=== PATIENT | male | born 1940 | race Caucasian/White ===

== ENCOUNTER 2024-07-15 06:37 | Emergency (ER) | payer MEDICARE, OTHER ==
--- NOTE | 2024-07-15 07:36 | ED Physician Documentation ---
PD HPI SYNCOPE - Stated complaint Stated Complaint: FALL - Chief complaint Chief Complaint: Neuro - History obtained from History obtained from: Patient, EMS (they noted his BP low on their arrival 85 systolic, which improved with IV fluids enroute. H normal and prehospital ECG normal.) - History of Present Illness Witnessed: Witnessed (by spouse) Timing - onset: Today (lightheaded and slumped to floor heading into bathroom after getting up this morning. Was weak the past 2 days with diarrhea. No fevers. Nausea ut no vomiting, though still singicant less PO intake. Still t aking usual meds.) Duration: Seconds Preceding symptoms: Headache, Nausea / vomiting, Light headed, Generalized weakness. No: Chest pain, Abdominal pain Contributing factors: Decreased PO intake, Just stood up. 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 denies: Vomiting, Constipation, Bloody / black stool Neurologic: reports: Generalized weakness, Near syncope. denies: Focal weakness, Syncope PD PAST MEDICAL HISTORY - Past Medical History Cardiovascular: Hypertension Respiratory: None Neuro: None Endocrine/Autoimmune: None - Present Medications Home Medications: Ambulatory Orders Medication Instructions Recorded Confirmed Atorvastatin Calcium [Lipitor] 20 mg PO DAILY 08/11/14 03/08/24 Amiodarone [Pacerone] 100 mg PO DAILY 12/16/20 03/08/24 FLUoxetine [PROzac] 10 mg PO DAILY 12/16/20 03/15/24 Cholecalciferol [Vitamin D3] 1 cap PO QPM 01/24/21 03/08/24 Glucosamine Sulfate 1 cap PO QPM 01/24/21 03/08/24 [place]-3S/Dha/Epa/Fish Oil [Fish 1 cap PO QPM 01/24/21 03/08/24 Oil 1,200 mg Softgel] Alpha Lipoic Acid 600 mg PO DAILY 04/21/23 03/08/24 Multivit-Min/Ferrous Sulfate [One 1 each PO DAILY 04/21/23 03/08/24 Daily Multivit-Mineral Tab] Famotidine [Pepcid] 20 mg PO DAILY PRN 03/08/24 03/08/24 amLODIPine [Norvasc] 5 mg PO DAILY #30 tablet 07/10/24 Diphenoxylate/Atropine [Lomotil] 1 each PO QID PRN #12 tablet 07/15/24 Ondansetron Odt [Zofran] 4 mg TL Q6H PRN #10 tablet 07/15/24 - Allergies Allergies/Adverse Reactions: Allergies Allergy/AdvReac Type Severity Reaction Status Date / Time Sulfa (Sulfonamide Allergy Unknown Verified 07/15/24 06:39 Antibiotics) - Social History Does the pt smoke?: No Smoking Status: Former smoker PD ED PE NORMAL - Vitals Vital signs reviewed: Yes - General General: Alert and oriented X 3, No acute distress, Well developed/nourished - HEENT HEENT: Atraumatic, Pharynx benign - Neck Neck: Supple, no meningeal sign, No adenopathy - Cardiac Cardiac: RRR, No murmur - Respiratory Respiratory: No respiratory distress, Clear bilaterally - Abdomen Abdomen: Soft, Non tender - Derm Derm: Warm and dry. No: Normal color (somewhat pale on arrival) - Extremities Extremities: No edema, No calf tenderness / cord - Neuro Neuro: Alert and oriented X 3, No motor deficit, No sensory deficit, Normal speech Results - Vitals Vitals: Oxygen O2 Source Room air - EKG (time done) 06:51 EKG releavant findings:: EKG personally interpreted by author of this note. Relevant findings are: Rate: Rate (enter#) (59) Rhythm: NSR [place]: Normal Intervals: Normal [place] QRS: Normal Ischemia: Normal ST segments. No: ST elevation c/w ischemia, ST depression - Labs Labs: Laboratory Tests 07/15/24 07/15/24 07/15/24 08:19 08:19 08:19 WBC 8.0 RBC 4.00 L Hgb 11.2 L Hct 34.9 L MCV 87.3 MCH 28.0 MCHC 32.1 RDW 15.9 H Plt Count 183 MPV 9.4 Neut # (Auto) 7.2 H Lymph # (Auto) 0.3 L [place] # (Auto) 0.5 Eos # (Auto) 0.0 Baso # (Auto) 0.0 Absolute Nucleated RBC 0.00 Nucleated RBC % 0.0 Sodium 134 L Potassium 3.5 Chloride 104 Carbon Dioxide 24 Anion Gap 6.0 BUN 23 H Creatinine 0.9 Estimated GFR (MDRD) 80 L Glucose 101 Lactic Acid 0.7 Calcium 8.4 L Magnesium 1.9 Total Bilirubin 0.6 AST 18 ALT 13 Alkaline Phosphatase 149 H Total Protein 6.1 L Albumin 3.6 Globulin 2.5 Albumin/Globulin Ratio 1.4 Lipase < 10 L Nasal Adenovirus (PCR) Nasal B. parapertussis DNA (PCR) Nasal Coronavir 229E PCR Nasal Coronavir HKU1 PCR Nasal Coronavir NL63 PCR Nasal Coronavir OC43 PCR Nasal Enterovir/Rhinovir PCR Nasal Influenza B PCR Nasal Influenza A PCR Nasal Parainfluen 1 PCR Nasal Parainfluen 2 PCR Nasal Parainfluen 3 PCR Nasal Parainfluen 4 PCR Nasal RSV (PCR) Nasal B.pertussis DNA PCR Nasal C.pneumoniae (PCR) Sunny Human Metapneumo PCR Nasal M.pneumoniae (PCR) Nasal SARS-CoV-2 (PCR) Blood Type Blood Type Recheck Antibody Screen 07/15/24 07/15/24 07/15/24 08:19 09:05 09:21 WBC RBC Hgb Hct MCV MCH MCHC RDW Plt Count MPV Neut # (Auto) Lymph # (Auto) [place] # (Auto) Eos # (Auto) Baso # (Auto) Absolute Nucleated RBC Nucleated RBC % Sodium Potassium Chloride Carbon Dioxide Anion Gap BUN Creatinine Estimated GFR (MDRD) Glucose Lactic Acid Calcium Magnesium Total Bilirubin AST ALT Alkaline Phosphatase Total Protein Albumin Globulin Albumin/Globulin Ratio Lipase Nasal Adenovirus (PCR) NOT DETECTED Nasal B. parapertussis DNA (PCR) NOT DETECTED Nasal Coronavir 229E PCR NOT DETECTED Nasal Coronavir HKU1 PCR NOT DETECTED Nasal Coronavir NL63 PCR NOT DETECTED Nasal Coronavir OC43 PCR NOT DETECTED Nasal Enterovir/Rhinovir PCR NOT DETECTED Nasal Influenza B PCR NOT DETECTED Nasal Influenza A PCR NOT DETECTED Nasal Parainfluen 1 PCR NOT DETECTED Nasal Parainfluen 2 PCR NOT DETECTED Nasal Parainfluen 3 PCR NOT DETECTED Nasal Parainfluen 4 PCR NOT DETECTED Nasal RSV (PCR) NOT DETECTED Nasal B.pertussis DNA PCR NOT DETECTED Nasal C.pneumoniae (PCR) NOT DETECTED Sunny Human Metapneumo PCR NOT DETECTED Nasal M.pneumoniae (PCR) NOT DETECTED Nasal SARS-CoV-2 (PCR) NOT DETECTED Blood Type O POSITIVE Blood Type Recheck O POSITIVE Antibody Screen NEGATIVE - Rads (name of study) chst xray Relevant Findings:: Prelim report reviewed, EMP independent interpretation of test (no infiltrates nor effusion. Some cardiomegaly.) head CT Relevant Findings:: Prelim report reviewed, EMP independent interpretation of test (no ICH nor acute injury noted. ) PD Medical Decision Making - ED course Complexity details: reviewed results (anemic but at chronic baseline Hgb level. No drop from usual. He did not have stool here, of course, so did not do guaic.), re-evaluated patient (feeling well. not lightheaded with standing. Drinking juice. ), considered differential (hs andersen diarrhea for couple days and felt weak, near syncope when got up this morning. says he was lethargic/sleepy and confused just prior to the near-fainting. ), d/w patient ED course: the lightheaded and weak seems reasonable in lieu of 2 days of diarrhea and less PO intkae. Given IV fluids here, antinauseants and was able to drink some department juice. Orthostatics were good and not lightheaded with standing now. Departure - Departure Disposition: 01 Home, Self Care Clinical Impression: Acute diarrhea, Volume depletion, gastrointestinal loss, Near syncope, G eneralized weakness Condition: Stable Record reviewed to determine appropriate education?: Yes Instructions: ED Diet Vomiting Diarrhea Follow-Up: Jody Warren MD [Primary Care Provider] - Prescriptions: Diphenoxylate/Atropine [Lomotil] 1 each PO QID PRN #12 tablet PRN Reason: Diarrhea Ondansetron Odt [Zofran] 4 mg TL Q6H PRN #10 tablet PRN Reason: Nausea / Vomiting Comments: I presume this may be a mild viral enteritis ("stomach flu"). I presume your gut under hydrated and had the near fainting/fainting from a brief drop in blood pressure. We have given you extra fluid here. Your basic blood count is doing okay and your vital signs are good here. I presume this will improve in the next day or 2. You can use ondansetron if needed for nausea and Lomotil if needed for diarrhea. Otherwise continue usual medicines except for holding the recent blood pressure medicine for the next week at least. Recheck if not improved well over the next few days. Forms: PCP List Discharge Date/Time: 07/15/24 13:00
[2024-07-15 08:29] LABS: BASOPHILS % (AUTO) 0.1 %; EOSINOPHILS % (AUTO) 0.5 %; HCT - HEMATOCRIT 34.9 % (42.0-52.0); HGB - HEMOGLOBIN 11.2 g/dL (14.0-18.0); LYMPHOCYTES # (AUTO) 0.3 10^3/uL (1.5-3.5); LYMPHOCYTES % (AUTO) 3.4 %; MEAN CORPUSCULAR HGB CONC 32.1 g/dL (32.0-36.0); MEAN CORPUSCULAR VOLUME 87.3 fL (80.0-94.0); MEAN PLATELET VOLUME 9.4 fL (7.4-11.4); MONOCYTES # (AUTO) 0.5 10^3/uL (0.0-1.0); MONOCYTES % (AUTO) 6.4 %; NEUTROPHILS # (AUTO) 7.2 10^3/uL (1.5-6.6); NEUTROPHILS % (AUTO) 89.2 %; PLT - PLATELET COUNT 183 10^3/uL (130-450); RED CELL DISTRIBUTION WIDTH 15.9 % (12.0-15.0)
--- NOTE | 2024-07-15 08:37 | XRAY Report ---
PROCEDURE: Chest 1V INDICATIONS: cough, weakness TECHNIQUE: One view of the chest was acquired. COMPARISON: None. FINDINGS: Surgical changes and devices: Percutaneous aortic valve, leadless pacemaker. Lungs and pleura: No pleural effusions or pneumothorax. Mild left basilar atelectasis. Mediastinum: Mediastinal contours appear normal. Mild cardiomegaly. Bones and chest wall: No suspicious bony lesions. Overlying soft tissues appear unremarkable. IMPRESSION: Mild cardiomegaly, mild left basilar atelectasis. Reviewed by: Juan J Millard MD on 07/15/2024 8:35 AM PDT Approved by: Juan J Millard MD on 07/15/2024 8:35 AM PDT Station ID: [id number]
[2024-07-15 08:48] LABS: ALBUMIN 3.6 g/dL (3.2-5.5); ALBUMIN/GLOBULIN RATIO 1.4 (1.0-2.2); ALKALINE PHOSPHATASE 149 IU/L (42-121); ALT ALANINE AMINOTRANSFERASE 13 IU/L (10-60); AST ASPARTATE AMINOTRANSFERASE 18 IU/L (10-42); BILIRUBIN,TOTAL 0.6 mg/dL (0.2-1.0); BUN - BLOOD UREA NITROGEN 23 mg/dL (6-20); CALCIUM 8.4 mg/dL (8.5-10.3); CARBON DIOXIDE - CO2 24 mmol/L (21-32); CHLORIDE 104 mmol/L (101-111); CREATININE 0.9 mg/dL (0.6-1.3); GFR - MDRD 80 (>89); GLUCOSE 101 mg/dL (74-104); MAGNESIUM 1.9 mg/dL (1.7-2.3); POTASSIUM 3.5 mmol/L (3.5-4.5); SODIUM 134 mmol/L (135-145); TOTAL PROTEIN 6.1 g/dL (6.4-8.9)
[2024-07-15 08:49] LABS: LIPASE < 10 U/L (11-82)
[2024-07-15] MEDS: SODIUM CHLORIDE 0.9% 1,000 ML IV STA (08:51)
--- NOTE | 2024-07-15 09:19 | CT Report ---
PROCEDURE: Head WO INDICATIONS: fall/near syncope/ lethargic TECHNIQUE: Noncontrast 4.5 mm thick angled axial sections acquired from the foramen magnum to the vertex. For r adiation dose reduction, the following was used: automated exposure control, adjustment of mA and/or kV according to patient size. COMPARISON: 09/15/2023. FINDINGS: Image quality: Excellent. CSF spaces: Basal cisterns are patent. No extra-axial fluid collections. Ventricles are normal in size and shape. Brain: No midline shift. No intracranial masses or hemorrhage. Oh-white matter interface is norm al. Intracranial carotid calcifications. Age-related volume loss and at least moderate small vessel i schemic change. Skull and face: Calvarium and visualized facial bones are intact, without suspicious lesions. Sinuses: Visualized sinuses and mastoids are clear. IMPRESSION: No acute intracranial pathology. Age-related volume loss and small vessel ischemic change. Reviewed by: Juan J Millard MD on 07/15/2024 9:17 AM PDT Approved by: Juan J Millard MD on 07/15/2024 9:17 AM PDT Station ID: [id number]
[2024-07-15 11:18] LABS: B. PARAPERTUSSIS- RESP PCR PAN NOT DETECTED; B. PERTUSSIS- RESP PCR PANEL NOT DETECTED; C. PNEUMONIAE- RESP PCR PANEL NOT DETECTED; CORONAVIRUS 229E-RESP PCR NOT DETECTED; CORONAVIRUS HKU1-RESP PCR NOT DETECTED; CORONAVIRUS NL63-RESP PCR NOT DETECTED; CORONAVIRUS OC43-RESP PCR NOT DETECTED; HUMAN METAPNEUMOVIRUS NOT DETECTED; INFLUENZA A- RESP PCR PANEL NOT DETECTED; INFLUENZA B - RESP PCR PANEL NOT DETECTED; M. PNEUMONIAE- RESP PCR PANEL NOT DETECTED; PARAINFLUENZA VIRUS 1 NOT DETECTED; PARAINFLUENZA VIRUS 2 NOT DETECTED; PARAINFLUENZA VIRUS 3 NOT DETECTED; PARAINFLUENZA VIRUS 4 NOT DETECTED; RHINOVIRUS/ENTEROVIRUS NOT DETECTED; RSV- RESP PCR PANEL NOT DETECTED; SARS-CoV-2 -RESP PCR PANEL NOT DETECTED
[2024-07-15] MEDS: DIPHENOX/ATROPINE 2.5/0.025 MG TABLET PO STA (11:27)
[2024-07-15 12:20] VITALS: BP 145/72; O2SAT 96
== END 2024-07-15 13:00 | disposition home or self-care (01) ==
LOC: ED 06:37
DX: E86.9 Volume depletion, unspecified (principal); R55 Syncope and collapse; R53.1 Weakness; R19.7 Diarrhea, unspecified; Z87.891 Personal history of nicotine dependence
CPT/HCPCS: 36415; 70450; 71045; 80053; 83605; 83690; 83735; 85025; 86850; 86900; 86901; 87633; 93005; 96360; 99284; A9270